=== PATIENT | female | born 1950 | race American Indian/Alaskan Native ===

== ENCOUNTER 2018-01-16 10:33 | Inpatient (IN) | payer MEDICARE ==
--- NOTE | 2018-01-16 10:58 | Cat Scan Report ---
CT head without contrast: Left side tingling and shaking currently asymptomatic. Axial images are performed. There is a rounded area of mild decreased attenuation in the right frontoparietal region on image 36. With this exception the cerebral attenuation is generally unremarkable. Minimal peripheral atrophy present consistent with age. Normal ventricular size. No mass effect, hemorrhage, and no extracerebral collections. Unremarkable bones and paranasal sinuses. Compared to prior exam in March 2010 and considering technical differences the findings appear stable. The right frontoparietal finding is questionably identified on prior exam but due to technical differences may not have been as evident. Impression: Doubt acute finding as discussed above. Discussed with Dr. Currie at 10:50 AM.
[2018-01-16 11:36] LABS: Basophils # (Auto) 0.1 K/mm3 (0.0-0.1); Eosinophils # (Auto) 0.2 K/mm3 (0.0-0.4); Eosinophils % (Auto) 3.5 % (0.0-4.3); Hematocrit 40.9 % (30.3-42.9); Hemoglobin 13.3 gm/dl (10.1-14.3); Lymphocytes # (Auto) 1.6 K/mm3 (1.2-5.4); Lymphocytes % (Auto) 27.3 % (13.4-35.0); Mean Corpuscular HGB Conc 33 % (30-34); Mean Corpuscular Hemoglobin 27 pg (28-32); Mean Corpuscular Volume 83 fl (79-97); Monocytes # (Auto) 0.4 K/mm3 (0.0-0.8); Monocytes % (Auto) 6.5 % (0.0-7.3); Platelet Count 334 K/mm3 (140-440); Red Blood Count 4.95 M/mm3 (3.65-5.03); Red Cell Distribution Width 14.5 % (13.2-15.2)
[2018-01-16 11:46] LABS: INR 0.87 (0.87-1.13)
--- NOTE | 2018-01-16 11:50 | History and Physical Report ---
History of Present Illness Chief complaint: I felt weak on my left side History of present illness: 67 YO Female with Obesity, HTN presents to ED for evaluation. Pt states that she was in her usual state of health at bedtime around 2100 hrs. Pt awoke from sleep around 0900 hrs and experienced Left arm weakness and slurred speech. EMS was notified, and upon arrival the patient was found to have symptoms consistent with stroke. A code stroke was called and the patient was transported to [facility] for further care and evaluation. Pt seen and evaluated in ED and found to have evidence of CVA. Pt admitted to telemetry and initiated on stroke protocol. Pt denies fever,chills, CP, Palpitations, NVD, Syncope, Trauma , recent ill contacts, unilateral leg swelling, calf pain, hemoptysis, individual/family history of DVT/PE. Past History Past Medical History: hypertension, other (obesity) Past Surgical History: No surgical history, Other (reviewed) Social history: single. denies: smoking, alcohol abuse, prescription drug abuse Family history: hypertension Medications and Allergies Allergies Allergy/AdvReac Type Severity Reaction Status Date / Time No Known Allergies Allergy Verified 01/16/18 11:22 Home Medications Medication Instructions Recorded Confirmed Last Taken Type Ibuprofen [Motrin] 800 mg PO Q8HR PRN 01/16/18 01/16/18 Unknown History Losartan [Cozaar] 100 mg PO QDAY 01/16/18 01/16/18 Unknown History NIFEdipine [] 90 mg PO HS 01/16/18 01/16/18 Unknown History Review of Systems Constitutional: no weight loss, no weight gain, no fever, no chills Ears, nose, mouth and throat: no ear pain, no ear discharge, no tinnitis, no decreased hearing, no nose pain, no nasal congestion Breasts: no change in shape, no swelling, no mass Cardiovascular: no chest pain, no orthopnea, no palpitations Respiratory: no cough, no cough with sputum, no excessive sputum, no hemoptysis , no shortness of breath Gastrointestinal: no nausea, no vomiting, no diarrhea, no constipation, no change in bowel habits Genitourinary Female: no dysmenorrhea, no pelvic pain, no flank pain, no menorrhagia, no dysuria Rectal: no pain, no incontinence, no bleeding Musculoskeletal: no neck stiffness, no neck pain, no shooting arm pain, no arm numbness/tingling, no low back pain, no shooting leg pain Integumentary: no rash, no pruritis, no redness, no sores, no wounds Neurological: weakness, numbness, tingling, change in speech, confusion, no head injury, no transient paralysis, no paralysis Psychiatric: no anxiety, no memory loss, no change in sleep habits, no sleep disturbances, no insomnia, no hypersomnia, no change in appetite, no change in libido Endocrine: no cold intolerance, no heat intolerance, no polyphagia, no excessive thirst, no polydipsia, no polyuria, no nocturia Hematologic/Lymphatic: no easy bruising, no easy bleeding, no lymphadenopathy, no lymphedema Allergic/Immunologic: no urticaria, no allergic rhinitis, no wheezing, no persistent infections, no anaphylaxis, no angioedema Exam - Constitutional Vitals: Temp Pulse Resp BP Pulse Ox 98.5 F 77 16 115/68 100 01/16/18 10:39 01/16/18 10:39 01/16/18 11:03 01/16/18 10:39 01/16/18 11:03 General appearance: Present: no acute distress, well-nourished - EENT Eyes: Present: PERRL ENT: hearing intact, clear oral mucosa - Neck Neck: Present: supple, normal ROM - Respiratory Respiratory effort: normal Respiratory: bilateral: CTA - Cardiovascular Heart Sounds: Present: S1 & S2. Absent: rub, click - Extremities Extremities: pulses symmetrical, No edema Peripheral Pulses: within normal limits - Abdominal General gastrointestinal: Present: soft, non-tender, non-distended, normal bowel sounds Female genitourinary: Present: normal - Integumentary Integumentary: Present: clear, warm, dry - Musculoskeletal Musculoskeletal: gait normal, strength equal bilaterally - Psychiatric Psychiatric: appropriate mood/affect, intact judgment & insight - Neurologic Neurologic: CNII-XII intact, moves all extremities Results - Labs CBC & Chem 7: 01/16/18 11:16 01/16/18 11:16 Labs: Abnormal lab results 01/16/18 Range/Units 11:16 MCH 27 L (28-32) pg Assessment and Plan - Patient Problems (1) CVA (cerebral vascular accident) Current Visit: Yes Status: Acute Qualifiers: Precerebral and cerebral artery: middle cerebral artery Laterality of affected vessel: left Plan to address problem: Stroke protocol: CT head, MRI Brain, MRA Brain, Echo, Carotid Doppler, antiplatelet therapy, PT/OT/ Speech, (2) HTN (hypertension) Current Visit: Yes Status: Acute Qualifiers: Hypertension type: essential hypertension Qualified Code(s): I10 - Essential (primary) hypertension Plan to address problem: monitor bp q shift, permissive hypertension overnight. (3) Obesity (BMI 30.0-34.9) Current Visit: Yes Status: Acute Plan to address problem: Balanced diet, increased physical activity at discharge. (4) DVT prophylaxis Current Visit: Yes Status: Acute Plan to address problem: SCD to BLE while in bed
[2018-01-16 11:57] LABS: BUN/Creatinine Ratio 16; Blood Urea Nitrogen 8 mg/dL (7-17); Calcium 9.1 mg/dL (8.4-10.2); Hemolysis Index 14
[2018-01-16 12:00] LABS: Alanine Aminotransferase 8 units/L (7-56); Albumin 4.3 g/dL (3.9-5)
--- NOTE | 2018-01-16 12:03 | XRay Report ---
PORTABLE CHEST: Hypertension. An AP portable view of the chest demonstrates a normal cardiac contour considering the limits of this technique. The lungs are clear with no evidence of infiltrate, fluid or failure. IMPRESSION: Normal portable chest.
[2018-01-16 12:06] LABS: Bilirubin,Direct < 0.2 mg/dL (0-0.2)
[2018-01-16] MEDS ORDERED: MILK OF MAGNESIA PO PRN (13:35)
[2018-01-16] MEDS ORDERED: PHENERGAN PR PRN (13:35)
[2018-01-16] MEDS ORDERED: REGLAN PO PRN (13:35)
[2018-01-16] MEDS ORDERED: SODIUM CHLORIDE FLUSH SYRINGE 10 ML IV PRN (13:35)
[2018-01-16] MEDS ORDERED: ZOFRAN IV PRN (13:35)
[2018-01-16] MEDS ORDERED: DULCOLAX PR PRN (13:35)
[2018-01-16] MEDS ORDERED: TYLENOL PO PRN (13:35)
[2018-01-16] MEDS ORDERED: ATIVAN IV NR (15:00)
--- NOTE | 2018-01-16 18:26 | Emergency Department Report ---
ED Neuro Deficit HPI - General Chief Complaint: Neuro Symptoms/Deficit Stated Complaint: HARD TIME SPEAKING Time Seen by Provider: 01/16/18 10:38 Source: EMS Mode of arrival: Stretcher Limitations: No Limitations - History of Present Illness Initial Comments: 67-year-old female developed some sort of rigidity of her left arm. She did not complain of numbness paresthesias or any sensory symptoms of her face or extremities. She was apparently anxious and had difficulty speaking. Her son called the EMS. She said that she had "shaking" of her left arm. However when the nurse spoke with the son he explained that her left arm was "tense" but there was no sign of seizure activity. At the time presentation to the emergency department the patient had no focal weakness and no difficulty in speaking. She complained of no sensory change either. -: Sudden Location: speech (see above HPI), left arm Presenting Symptoms: Absent: Weak/Paralyzed One Side, Sudden, Severe Headache, Blurred/Loss of Vision, Facial Droop/Numbness, Unable to Speak Clearly, Altered Mental Status History of same: No Place: home Severity: moderate Quality: other (as above indicated) Improves With: none On Anticoagulants: No Context: gradual onset Associated Symptoms: denies other symptoms Treatments Prior to Arrival: none - Related Data Home Medications: Home Medications Medication Instructions Recorded Confirmed Last Taken Ibuprofen [Motrin] 800 mg PO Q8HR PRN 01/16/18 01/16/18 Unknown Losartan [Cozaar] 100 mg PO QDAY 01/16/18 01/16/18 Unknown NIFEdipine [] 90 mg PO HS 01/16/18 01/16/18 Unknown Allergies/Adverse Reactions: Allergies Allergy/AdvReac Type Severity Reaction Status Date / Time No Known Allergies Allergy Verified 01/16/18 11:22 ED Review of Systems ROS: Stated complaint: HARD TIME SPEAKING Other details as noted in HPI Constitutional: denies: chills, fever Eyes: denies: eye pain, eye discharge, vision change ENT: denies: ear pain, throat pain Respiratory: denies: cough, shortness of breath, wheezing Cardiovascular: denies: chest pain, palpitations Endocrine: no symptoms reported Gastrointestinal: denies: abdominal pain, nausea, diarrhea Genitourinary: denies: urgency, dysuria, discharge Musculoskeletal: denies: back pain, joint swelling, arthralgia Skin: denies: rash, lesions Neurological: as per HPI. denies: headache, weakness, paresthesias Psychiatric: denies: anxiety, depression Hematological/Lymphatic: denies: easy bleeding, easy bruising ED Past Medical Hx - Past Medical History Previous Medical History?: Yes Hx Hypertension: Yes - Surgical History Past Surgical History?: No - Social History Smoking Status: Never Smoker Substance Use Type: None - Medications Home Medications: Home Medications Medication Instructions Recorded Confirmed Last Taken Type Ibuprofen [Motrin] 800 mg PO Q8HR PRN 01/16/18 01/16/18 Unknown History Losartan [Cozaar] 100 mg PO QDAY 01/16/18 01/16/18 Unknown History NIFEdipine [] 90 mg PO HS 01/16/18 01/16/18 Unknown History ED Neuro Physical Exam - General Limitations: No Limitations General appearance: alert, in no apparent distress Suspected Stroke: No - Head Head exam: Present: atraumatic, normocephalic - Eye Eye exam: Present: normal appearance, PERRL, EOMI. Absent: scleral icterus - ENT ENT exam: Present: normal exam, mucous membranes moist - Neck Neck exam: Present: normal inspection. Absent: tenderness, meningismus - Respiratory Respiratory exam: Present: normal lung sounds bilaterally. Absent: respiratory distress - Cardiovascular Cardiovascular Exam: Present: regular rate, normal rhythm. Absent: systolic murmur, diastolic murmur, rubs, gallop - GI/Abdominal GI/Abdominal exam: Present: soft, normal bowel sounds. Absent: distended, tenderness, guarding, rebound, rigid - Extremities Exam Extremities exam: Present: normal inspection - Back Exam Back exam: Present: normal inspection - Neurological Exam Neurological exam: Present: alert, oriented X3, CN II-XII intact. Absent: motor sensory deficit - NIHSS Assessment Interval: Baseline 1a. Level of Consciousness: alert 1b. LOC Questions: answers correctly 1c. LOC Commands: performs tasks correctly 2. Best Gaze: normal 3. Visual: no visual loss 4. Facial Palsy: normal symmetrical movement 5b. Motor Arm Right: no drift 5a. Motor Arm Left: no drift 6a. Motor Leg Left: no drift 6b. Motor Leg Right: no drift 7. Limb Ataxia: absent 8. Sensory: normal 9. Best Language: no aphasia 10. Dysarthria: normal 11. Extinction/Inattention: no abnormality Total Score: 0 Stroke Severity: No Stroke Symptoms - Psychiatric Psychiatric exam: Present: normal affect, normal mood - Skin Skin exam: Present: warm, dry, intact, normal color. Absent: rash ED Course Vital Signs 01/16/18 01/16/18 01/16/18 10:39 11:03 14:36 Temperature 98.5 F Pulse Rate 77 91 H Respiratory 16 16 18 Rate Blood Pressure 115/68 Blood Pressure 128/84 [Left] O2 Sat by Pulse 100 100 99 Oximetry - Reevaluation(s) Reevaluation #1: The patient's episode was non-consistent with stroke. Her NIH stroke score was 0. Notwithstanding, she will be admitted as a possible TIA to complete her stroke workup. 01/16/18 18:32 - Lab Data Result diagrams: 01/16/18 11:16 01/16/18 11:16 Lab Results 01/16/18 01/16/18 01/16/18 Range/Units 11:16 11:16 11:16 WBC 5.7 (4.5-11.0) K/mm3 RBC 4.95 (3.65-5.03) M/mm3 Hgb 13.3 (10.1-14.3) gm/dl Hct 40.9 (30.3-42.9) % MCV 83 (79-97) fl MCH 27 L (28-32) pg MCHC 33 (30-34) % RDW 14.5 (13.2-15.2) % Plt Count 334 (140-440) K/mm3 Lymph % (Auto) 27.3 (13.4-35.0) % King % (Auto) 6.5 (0.0-7.3) % Eos % (Auto) 3.5 (0.0-4.3) % Baso % (Auto) 1.0 (0.0-1.8) % Lymph # 1.6 (1.2-5.4) K/mm3 King # 0.4 (0.0-0.8) K/mm3 Eos # 0.2 (0.0-0.4) K/mm3 Baso # 0.1 (0.0-0.1) K/mm3 Seg Neutrophils % 61.7 (40.0-70.0) % Seg Neutrophils # 3.5 (1.8-7.7) K/mm3 PT 12.2 (12.2-14.9) Sec. INR 0.87 (0.87-1.13) APTT 27.0 (24.2-36.6) Sec. Thrombin Time (15.1-19.6) Sec. Sodium 138 (137-145) mmol/L Potassium 4.0 (3.6-5.0) mmol/L Chloride 101.9 (98-107) mmol/L Carbon Dioxide 21 L (22-30) mmol/L Anion Gap 19 mmol/L BUN 8 (7-17) mg/dL Creatinine 0.5 L (0.7-1.2) mg/dL Estimated GFR > 60 ml/min BUN/Creatinine Ratio 16 % Glucose 114 H (65-100) mg/dL Calcium 9.1 (8.4-10.2) mg/dL Total Bilirubin (0.1-1.2) mg/dL Direct Bilirubin (0-0.2) mg/dL Indirect Bilirubin mg/dL AST (5-40) units/L ALT (7-56) units/L Alkaline Phosphatase (35-129) units/L Troponin T < 0.010 (0.00-0.029) ng/mL Total Protein (6.3-8.2) g/dL Albumin (3.9-5) g/dL Albumin/Globulin Ratio % 01/16/18 01/16/18 Range/Units 11:16 11:16 WBC (4.5-11.0) K/mm3 RBC (3.65-5.03) M/mm3 Hgb (10.1-14.3) gm/dl Hct (30.3-42.9) % MCV (79-97) fl MCH (28-32) pg MCHC (30-34) % RDW (13.2-15.2) % Plt Count (140-440) K/mm3 Lymph % (Auto) (13.4-35.0) % King % (Auto) (0.0-7.3) % Eos % (Auto) (0.0-4.3) % Baso % (Auto) (0.0-1.8) % Lymph # (1.2-5.4) K/mm3 King # (0.0-0.8) K/mm3 Eos # (0.0-0.4) K/mm3 Baso # (0.0-0.1) K/mm3 Seg Neutrophils % (40.0-70.0) % Seg Neutrophils # (1.8-7.7) K/mm3 PT (12.2-14.9) Sec. INR (0.87-1.13) APTT (24.2-36.6) Sec. Thrombin Time 15.7 (15.1-19.6) Sec. Sodium (137-145) mmol/L Potassium (3.6-5.0) mmol/L Chloride (98-107) mmol/L Carbon Dioxide (22-30) mmol/L Anion Gap mmol/L BUN (7-17) mg/dL Creatinine (0.7-1.2) mg/dL Estimated GFR ml/min BUN/Creatinine Ratio % Glucose (65-100) mg/dL Calcium (8.4-10.2) mg/dL Total Bilirubin 0.50 (0.1-1.2) mg/dL Direct Bilirubin < 0.2 (0-0.2) mg/dL Indirect Bilirubin 0.3 mg/dL AST 18 (5-40) units/L ALT 8 (7-56) units/L Alkaline Phosphatase 67 (35-129) units/L Troponin T (0.00-0.029) ng/mL Total Protein 7.2 (6.3-8.2) g/dL Albumin 4.3 (3.9-5) g/dL Albumin/Globulin Ratio 1.5 % - EKG Data -: EKG Interpreted by Me EKG shows normal: sinus rhythm, axis, intervals, QRS complexes Interpretation: nonspecific ST-T wave yg (inferior leads) - Radiology Data Radiology results: report reviewed interpreted by me: No acute findings - Thrombolytic Inclusion/Exclusion Thrombolytic Contraindications: Rapidily Improving s/s (symptoms not conforming with stroke) Critical care attestation.: If time is entered above; I have spent that time in minutes in the direct care of this critically ill patient, excluding procedure time. ED Disposition Clinical Impression: TIA (transient ischemic attack) Qualifiers: Transient cerebral ischemia type: unspecified Qualified Code(s): G45.9 - Transient cerebral ischemic attack, unspecified Disposition: 09 OP ADMIT IP TO THIS HOSP Is pt being admited?: Yes Does the pt Need Aspirin: Yes Condition: Stable Time of Disposition: 18:35
[2018-01-16] MEDS ORDERED: PRAVACHOL PO SCH (22:00)
[2018-01-17 06:54] LABS: Chol/HDL Ratio 3.32 %
--- NOTE | 2018-01-17 12:11 | Progress Note ---
Assessment and Plan Assessment and plan: (1) CVA (cerebral vascular accident) Current Visit: Yes Status: Acute Qualifiers: Precerebral and cerebral artery: middle cerebral artery Laterality of affected vessel: left Plan to address problem: Stroke protocol: CT head, MRI Brain, MRA Brain, Echo, Carotid Doppler, antiplatelet therapy, PT/OT/ Speech, (2) HTN (hypertension) Current Visit: Yes Status: Acute Qualifiers: Hypertension type: essential hypertension Qualified Code(s): I10 - Essential (primary) hypertension Plan to address problem: monitor bp q shift, permissive hypertension overnight. (3) Obesity (BMI 30.0-34.9) Current Visit: Yes Status: Acute Plan to address problem: Balanced diet, increased physical activity at discharge. (4) DVT prophylaxis Current Visit: Yes Status: Acute Plan to address problem: SCD to BLE while in bed History Interval history: Patient seen and examined medical records reviewed Physical slightly better no new complaints Speech clear No weakness in the body Alert awake oriented 3 Vital signs reviewed Hospitalist Physical - Constitutional Vitals: Temp Pulse Resp BP Pulse Ox 98.4 F 94 H 20 111/72 96 01/17/18 08:13 01/17/18 11:47 01/17/18 11:47 01/17/18 08:13 01/17/18 08:13 General appearance: Present: no acute distress, well-nourished - EENT Eyes: Present: PERRL - Neck Neck: Present: supple, normal ROM - Respiratory Respiratory effort: normal Respiratory: negative: rales, rhonchi, wheezing - Cardiovascular Rhythm: regular Heart Sounds: Present: S1 & S2 - Extremities Extremities: no ischemia, No edema Peripheral Pulses: within normal limits - Abdominal General gastrointestinal: soft, non-tender, non-distended, normal bowel sounds - Integumentary Integumentary: Present: clear, warm - Psychiatric Psychiatric: appropriate mood/affect, cooperative - Neurologic Neurologic: CNII-XII intact, moves all extremities Results - Labs CBC & Chem 7: 01/16/18 11:16 01/16/18 11:16 Labs: Laboratory Last Values WBC 5.7 K/mm3 (4.5-11.0) 01/16/18 11:16 RBC 4.95 M/mm3 (3.65-5.03) 01/16/18 11:16 Hgb 13.3 gm/dl (10.1-14.3) 01/16/18 11:16 Hct 40.9 % (30.3-42.9) 01/16/18 11:16 MCV 83 fl (79-97) 01/16/18 11:16 MCH 27 pg (28-32) L 01/16/18 11:16 MCHC 33 % (30-34) 01/16/18 11:16 RDW 14.5 % (13.2-15.2) 01/16/18 11:16 Plt Count 334 K/mm3 (140-440) 01/16/18 11:16 Lymph % (Auto) 27.3 % (13.4-35.0) 01/16/18 11:16 [place] % (Auto) 6.5 % (0.0-7.3) 01/16/18 11:16 Eos % (Auto) 3.5 % (0.0-4.3) 01/16/18 11:16 Baso % (Auto) 1.0 % (0.0-1.8) 01/16/18 11:16 Lymph # 1.6 K/mm3 (1.2-5.4) 01/16/18 11:16 [place]cock # 0.4 K/mm3 (0.0-0.8) 01/16/18 11:16 Eos # 0.2 K/mm3 (0.0-0.4) 01/16/18 11:16 Baso # 0.1 K/mm3 (0.0-0.1) 01/16/18 11:16 Seg Neutrophils % 61.7 % (40.0-70.0) 01/16/18 11:16 Seg Neutrophils # 3.5 K/mm3 (1.8-7.7) 01/16/18 11:16 PT 12.2 Sec. (12.2-14.9) 01/16/18 11:16 INR 0.87 (0.87-1.13) 01/16/18 11:16 APTT 27.0 Sec. (24.2-36.6) 01/16/18 11:16 Thrombin Time 15.7 Sec. (15.1-19.6) 01/16/18 11:16 Sodium 138 mmol/L (137-145) 01/16/18 11:16 Potassium 4.0 mmol/L (3.6-5.0) 01/16/18 11:16 Chloride 101.9 mmol/L (98-107) 01/16/18 11:16 Carbon Dioxide 21 mmol/L (22-30) L 01/16/18 11:16 Anion Gap 19 mmol/L 01/16/18 11:16 BUN 8 mg/dL (7-17) 01/16/18 11:16 Creatinine 0.5 mg/dL (0.7-1.2) L 01/16/18 11:16 Estimated GFR > 60 ml/min 01/16/18 11:16 BUN/Creatinine Ratio 16 % 01/16/18 11:16 Glucose 114 mg/dL (65-100) H 01/16/18 11:16 Calcium 9.1 mg/dL (8.4-10.2) 01/16/18 11:16 Total Bilirubin 0.50 mg/dL (0.1-1.2) 01/16/18 11:16 Direct Bilirubin < 0.2 mg/dL (0-0.2) 01/16/18 11:16 Indirect Bilirubin 0.3 mg/dL 01/16/18 11:16 AST 18 units/L (5-40) 01/16/18 11:16 ALT 8 units/L (7-56) 01/16/18 11:16 Alkaline Phosphatase 67 units/L (35-129) 01/16/18 11:16 Troponin T < 0.010 ng/mL (0.00-0.029) 01/16/18 11:16 Total Protein 7.2 g/dL (6.3-8.2) 01/16/18 11:16 Albumin 4.3 g/dL (3.9-5) 01/16/18 11:16 Albumin/Globulin Ratio 1.5 % 01/16/18 11:16 Triglycerides 81 mg/dL (2-149) 01/17/18 05:12 Cholesterol 206 mg/dL (50-199) H 01/17/18 05:12 LDL Cholesterol Direct 132 mg/dL (50-130) H 01/17/18 05:12 HDL Cholesterol 62 mg/dL (40-59) H 01/17/18 05:12 Cholesterol/HDL Ratio 3.32 % 01/17/18 05:12
--- NOTE | 2018-01-17 12:32 | Magnetic Resonance Report ---
MRA HEAD WITHOUT CONTRAST HISTORY: Show. [id number] imaging with MIP reformations of the pilot point of Russ is submitted. The arteries appear widely patent and free of hemodynamically significant stenosis, aneurysm or dissection. IMPRESSION: Unremarkable MRA head.
--- NOTE | 2018-01-17 12:32 | Magnetic Resonance Report ---
MRI OF THE BRAIN WITHOUT CONTRAST: HISTORY: CVA PROCEDURE: Multiplanar, multisequence MR imaging of the brain without IV contrast was performed. FINDINGS: There are large areas of susceptibility artifact throughout the bilateral frontal lobes and left parietal lobe. This is most pronounced on the diffusion sequence. A solitary 4 mm focus of diffusion restriction is identified in the right parietal lobe on diffusion image 20. This appears to involve the postcentral gyrus. No additional areas of diffusion restriction are identified although the diffusion sequence is severely limited. Mild diffuse volume loss and mild nonspecific chronic white matter changes are identified. No chronic infarct is detected. The midline structures are central. The basal cisterns are patent. Normal ventricular size. The orbital cavities and sella turcica demonstrate no abnormality. The visualized paranasal sinuses and mastoid air cells are well aerated. IMPRESSION: Limited exam. A 4 mm focus of subacute ischemia is suspected in the anterior right parietal lobe as described above. Volume loss. Chronic white matter changes.
[2018-01-17] MEDS: ASPIRIN PO SCH (15:42)
[2018-01-18] MEDS: ASPIRIN PO SCH (11:16)
--- NOTE | 2018-01-18 13:35 | Discharge Summary ---
Providers - Providers Date of Admission: 01/16/18 13:36 Date of discharge: 01/18/18 Attending physician: BOY ZULUAGA 01/16/18 13:36 Occupational Therapy Evaluate and Treat [CONS] Routine Comment: Reason For Exam: Neuro deficits Physical Therapy Evaluation and Treat [CONS] Routine Comment: Reason For Exam: Neuro deficits 01/16/18 13:37 Speech Therapy Evaluation and Treat [CONS] Routine Reason For Exam: swallow eval Primary care physician: SUPERINTENDENT [employer]OWER Hospitalization Condition: Stable Disposition: DC-01 TO HOME OR SELFCARE Time spent for discharge: 33 min Core Measure Documentation - Palliative Care Palliative Care/ Comfort Measures: Not Applicable - Core Measures Any of the following diagnoses?: stroke - Stroke Discharge Requirements Statin for LDL = or >70 mg/dl on DC: Yes Anticoag for atrial fib/atrial flutter: Not Applicable (no h/o afib/aflutter) Antithrombotic for ischemic stroke: Yes Exam - Constitutional Vitals: Temp Pulse Resp BP Pulse Ox 98.5 F 74 19 127/83 96 01/18/18 07:30 01/18/18 07:30 01/18/18 07:30 01/18/18 07:30 01/18/18 10:00 General appearance: Present: no acute distress, well-nourished - EENT Eyes: Present: PERRL, EOM intact - Neck Neck: Present: supple, normal ROM - Respiratory Respiratory effort: normal Respiratory: negative: rales, rhonchi, wheezing - Cardiovascular Rhythm: regular Heart Sounds: Present: S1 & S2 - Extremities Extremities: no ischemia, No edema - Abdominal General gastrointestinal: Present: soft, non-tender, non-distended, normal bowel sounds - Integumentary Integumentary: Present: clear, warm - Musculoskeletal Musculoskeletal: strength equal bilaterally - Psychiatric Psychiatric: appropriate mood/affect, cooperative - Neurologic Neurologic: CNII-XII intact, moves all extremities Plan Activity: advance as tolerated Diet: low cholesterol, low salt Follow up with: ALMA CRAVEN MD [Primary Care Provider] - 7 Days BRIAN DIALLO MD [Staff Physician] - 7 Days Prescriptions: Aspirin [Aspirin TAB] 325 mg PO QDAY #30 tablet AtorvaSTATin [Lipitor] 40 mg PO QHS #30 tab
[2018-01-18 16:47] VITALS: BP 126/70
--- NOTE | 2018-01-20 15:18 | Query- General ---
Dear ____Kimo Date:__01/20/2018 Livestock Sales Representative/CDS:___Mima Phone#:__[phone] Exercise your independent professional judgment when responding to this query. Questions asked do not imply a particular answer is desired or expected. We greatly appreciate your clarification on this issue. Clinical Documentation States: 67 Year old female was admitted on 01/16/2018 for Left arm weakness and slurred speech. EMS was notified, and upon arrival the patient was found to have symptoms consistent with stroke. A code stroke was called and the patient was transported to [facility] for further care and evaluation. Pt seen and evaluated in ED and found to have evidence of CVA. Pt admitted to telemetry and initiated on stroke protocol. The Hospitalist (Dr. Malin) progress note stated "Assessment and plan: (1) CVA (cerebral vascular accident) Current Visit: Yes Status: Acute Qualifiers: Precerebral and cerebral artery: middle cerebral artery Laterality of affected vessel: left Plan to address problem: Stroke protocol: CT head, MRI Brain, MRA Brain, Echo, Carotid Doppler, antiplatelet therapy, PT/OT/ Speech." Given the above clinical scenario can you please provide an appropriate diagnosis based on your knowledge of the patient: PHYSICIAN RESPONSE: [ ] CVA Ruled In [ ] CVA Ruled Out [ ] Other (Please specify): Present on Admission: [ ] Yes (Y) [ ] Clinically undeterminable (W) [ ]No(N) Please also document response in your Progress Notes and/or Discharge Summary and indicate if the condition was present on admission. JAVY
== END 2018-01-18 16:00 | disposition home or self-care (01) | DRG 66 ==
LOC: ED 10:33 → 4A 13:36
PROVIDERS: ADMIT Internal Medicine; ATTEND Internal Medicine
DX: I63.9 Cerebral infarction, unspecified (principal); I10 Essential (primary) hypertension; E66.9 Obesity, unspecified; Z68.29 Body mass index [BMI] 29.0-29.9, adult; Z79.899 Other long term (current) drug therapy; Z82.49 Family history of ischemic heart disease and other diseases of the circulatory system
CPT/HCPCS: 36415; 70450; 70544; 70551; 71045; 80048; 80061; 80074; 84484; 85025; 85610; 85670; 85730; 93005; 93010; 93880; A9270-GY; G8978-GP; G8979-GP; G8980-GP; G8987-GO; G8988-GO; G8989-GO; G8996-GN; G8997-GN; G8998-GN; J2060

== ENCOUNTER 2019-01-01 00:32 | Emergency (ER) | payer MEDICARE ==
[2019-01-01 00:51] VITALS: BP 116/77
[2019-01-01] MEDS ORDERED: NORCO 5/325 PO STA (03:32)
--- NOTE | 2019-01-01 03:39 | Emergency Department Report ---
ED ENT HPI - General Chief complaint: Dental/Oral Stated complaint: TOOTHACHE Time Seen by Provider: 01/01/19 03:01 Source: patient Mode of arrival: Ambulatory Limitations: No Limitations - History of Present Illness MD complaint: tooth pain -: Gradual Location: tooth # Severity: mild Quality: aching, dull Consistency: constant Improves with: none Worsens with: eating (sitting on Day when she bit into something and cracked her tooth, which was already fractured and eroded. Since that time 7 dull throbbing pain to the dentition, with some mild adjacent swelling) - Related Data Home Medications Medication Instructions Recorded Confirmed Last Taken Ibuprofen [Motrin 800 MG tab] 800 mg PO Q8HR PRN 01/16/18 01/16/18 Unknown Losartan [Cozaar] 100 mg PO QDAY 01/16/18 01/16/18 Unknown NIFEdipine [Nifedipine ER] 90 mg PO HS 01/16/18 01/16/18 Unknown Previous Rx's Medication Instructions Recorded Last Taken Type Aspirin 325 mg PO QDAY #30 tablet 01/18/18 Unknown Rx AtorvaSTATin [Lipitor] 40 mg PO QHS #30 tab 01/18/18 Unknown Rx Amoxicillin [Amoxicillin TAB] 875 mg PO BID #20 tablet 01/01/19 Unknown Rx Chlorhexidine Mouthwash [Peridex] 15 ml MM BID #1 bottle 01/01/19 Unknown Rx Lidocaine Viscous 2% 5 ml MM Q3H PRN #120 udc 01/01/19 Unknown Rx Allergies Allergy/AdvReac Type Severity Reaction Status Date / Time No Known Allergies Allergy Verified 01/16/18 11:22 ED Dental HPI - General Chief complaint: Dental/Oral Stated complaint: TOOTHACHE Time Seen by Provider: 01/01/19 03:01 Source: patient Mode of arrival: Ambulatory Limitations: No Limitations - Related Data Home Medications Medication Instructions Recorded Confirmed Last Taken Ibuprofen [Motrin 800 MG tab] 800 mg PO Q8HR PRN 01/16/18 01/16/18 Unknown Losartan [Cozaar] 100 mg PO QDAY 01/16/18 01/16/18 Unknown NIFEdipine [Nifedipine ER] 90 mg PO HS 01/16/18 01/16/18 Unknown Previous Rx's Medication Instructions Recorded Last Taken Type Aspirin 325 mg PO QDAY #30 tablet 01/18/18 Unknown Rx AtorvaSTATin [Lipitor] 40 mg PO QHS #30 tab 01/18/18 Unknown Rx Amoxicillin [Amoxicillin TAB] 875 mg PO BID #20 tablet 01/01/19 Unknown Rx Chlorhexidine Mouthwash [Peridex] 15 ml MM BID #1 bottle 01/01/19 Unknown Rx Lidocaine Viscous 2% 5 ml MM Q3H PRN #120 udc 01/01/19 Unknown Rx Allergies Allergy/AdvReac Type Severity Reaction Status Date / Time No Known Allergies Allergy Verified 01/16/18 11:22 ED Review of Systems ROS: Stated complaint: TOOTHACHE Other details as noted in HPI Constitutional: denies: chills, fever Eyes: denies: eye pain, eye discharge, vision change ENT: denies: ear pain, throat pain Respiratory: denies: cough, shortness of breath, wheezing Cardiovascular: denies: chest pain, palpitations Endocrine: no symptoms reported Gastrointestinal: denies: abdominal pain, nausea, diarrhea Genitourinary: denies: urgency, dysuria, discharge Musculoskeletal: denies: back pain, joint swelling, arthralgia Skin: denies: rash, lesions Neurological: denies: headache, weakness, paresthesias Psychiatric: denies: anxiety, depression Hematological/Lymphatic: denies: easy bleeding, easy bruising ED Past Medical Hx - Past Medical History Hx Hypertension: Yes Hx HIV: No - Social History Smoking Status: Never Smoker Substance Use Type: None - Medications Home Medications: Home Medications Medication Instructions Recorded Confirmed Last Taken Type Ibuprofen [Motrin 800 MG tab] 800 mg PO Q8HR PRN 01/16/18 01/16/18 Unknown History Losartan [Cozaar] 100 mg PO QDAY 01/16/18 01/16/18 Unknown History NIFEdipine [Nifedipine ER] 90 mg PO HS 01/16/18 01/16/18 Unknown History Aspirin 325 mg PO QDAY #30 tablet 01/18/18 Unknown Rx AtorvaSTATin [Lipitor] 40 mg PO QHS #30 tab 01/18/18 Unknown Rx Amoxicillin [Amoxicillin TAB] 875 mg PO BID #20 tablet 01/01/19 Unknown Rx Chlorhexidine Mouthwash [Peridex] 15 ml MM BID #1 bottle 01/01/19 Unknown Rx Lidocaine Viscous 2% 5 ml MM Q3H PRN #120 udc 01/01/19 Unknown Rx ED Physical Exam - General Limitations: No Limitations General appearance: alert, in no apparent distress - Head Head exam: Present: atraumatic, normocephalic - Eye Eye exam: Present: normal appearance, PERRL, EOMI. Absent: scleral icterus, conjunctival injection Pupils: Present: normal accommodation - ENT ENT exam: Present: normal exam, mucous membranes dry, mucous membranes moist, TM's normal bilaterally - Neck Neck exam: Present: normal inspection, tenderness, full ROM - Respiratory Respiratory exam: Present: normal lung sounds bilaterally. Absent: respiratory distress - Cardiovascular Cardiovascular Exam: Present: regular rate, normal rhythm. Absent: systolic murmur, diastolic murmur, rubs, gallop - GI/Abdominal GI/Abdominal exam: Present: soft, normal bowel sounds. Absent: distended, hypoactive bowel sounds, organomegaly, mass, bruit - Extremities Exam Extremities exam: Present: normal inspection - Back Exam Back exam: Present: normal inspection - Neurological Exam Neurological exam: Present: alert, oriented X3 - Psychiatric Psychiatric exam: Present: normal affect, normal mood - Skin Skin exam: Present: warm, dry, intact, normal color. Absent: rash ED Course Vital Signs 01/01/19 01/01/19 00:44 00:45 Temperature 98.2 F Pulse Rate 102 H 95 H Respiratory 18 Rate Blood Pressure 116/77 O2 Sat by Pulse 96 97 Oximetry Critical care attestation.: If time is entered above; I have spent that time in minutes in the direct care of this critically ill patient, excluding procedure time. ED Disposition Clinical Impression: Dentalgia Disposition: DC-01 TO HOME OR SELFCARE Is pt being admited?: No Does the pt Need Aspirin: No Condition: Stable Instructions: Dental Abscess (ED), Dental Caries (ED), Acute dental trauma (ED), Toothache (ED) Prescriptions: Amoxicillin [Amoxicillin TAB] 875 mg PO BID #20 tablet Lidocaine Viscous 2% 5 ml MM Q3H PRN #120 udc PRN Reason: Pain, Moderate (4-6) Chlorhexidine Mouthwash [Peridex] 15 ml MM BID #1 bottle Referrals: VIOLETTA MONCADA JR, MD [Primary Care Provider] - 3-5 Days [facility] [Outside] - 3-5 Days
== END 2019-01-01 04:32 | disposition home or self-care (01) ==
LOC: ED 00:32
DX: K08.89 Other specified disorders of teeth and supporting structures (principal); I10 Essential (primary) hypertension; Z79.82 Long term (current) use of aspirin
CPT/HCPCS: 99282

== ENCOUNTER 2019-11-12 19:59 | Emergency (ER) | payer MEDICARE | END 2019-11-12 20:00 | disposition left against medical advice (07) | LOC: ED 19:59 | DX: R33.9 Retention of urine, unspecified (principal); Z53.21 Procedure and treatment not carried out due to patient leaving prior to being seen by health care provider ==

== ENCOUNTER 2020-09-17 16:22 | Emergency (ER) | payer MEDICARE ==
[2020-09-17 16:54] VITALS: BP 151/93
--- NOTE | 2020-09-17 21:11 | Emergency Department Report ---
ED General Adult HPI - General Chief complaint: Pain General Stated complaint: DOC SENT DUE TO EKG Time Seen by Provider: 09/17/20 20:50 Source: patient Mode of arrival: Ambulatory Limitations: No Limitations - History of Present Illness Initial comments: 69-year-old female, history of hypertension, referred to ED for abnormal EKG. Patient states she is experiencing some numbness and tingling in her left index finger, so she decided to go to an urgent care to find out what was going on. Patient states she has not had any paresthesias to the rest of her hand or arm. Patient states she experienced a sharp pain in her left upper arm that lasted fo r only a couple of seconds and then resolved. Patient has not had this pain again. She denies any chest pain. She denies any nausea or vomiting, diaphoresis, leg pain or swelling. Patient states the urgent care physician did an EKG and told her that it was abnormal, recommending that she come to the ER. EKG from urgent care shows T wave inversions and leads III and aVF. Patient denies tobacco use. -: This morning Location: left, upper extremity Radiation: non-radiation Quality: other (Tingling) Consistency: intermittent Improves with: none Worsens with: none Associated Symptoms: denies: chest pain, nausea/vomiting, shortness of breath - Related Data Home Medications Medication Instructions Recorded Confirmed Last Taken Ibuprofen [Motrin 800 MG tab] 800 mg PO Q8HR PRN 01/16/18 01/16/18 Unknown Losartan [Cozaar] 100 mg PO QDAY 01/16/18 01/16/18 Unknown NIFEdipine [Nifedipine ER] 90 mg PO HS 01/16/18 01/16/18 Unknown Previous Rx's Medication Instructions Recorded Last Taken Type Aspirin 325 mg PO QDAY #30 tablet 01/18/18 Unknown Rx AtorvaSTATin [Lipitor] 40 mg PO QHS #30 tab 01/18/18 Unknown Rx Amoxicillin [Amoxicillin TAB] 875 mg PO BID #20 tablet 01/01/19 Unknown Rx Chlorhexidine Mouthwash [Peridex] 15 ml MM BID #1 bottle 01/01/19 Unknown Rx Lidocaine Viscous 2% 5 ml MM Q3H PRN #120 udc 01/01/19 Unknown Rx Allergies Allergy/AdvReac Type Severity Reaction Status Date / Time No Known Allergies Allergy Verified 01/16/18 11:22 ED Review of Systems ROS: Stated complaint: DOC SENT DUE TO EKG Other details as noted in HPI Comment: All other systems reviewed and negative Constitutional: denies: fever Respiratory: denies: shortness of breath Cardiovascular: denies: chest pain Gastrointestinal: denies: nausea, vomiting Musculoskeletal: other (Denies leg pain or swelling) Neurological: paresthesias ED Past Medical Hx - Past Medical History Previous Medical History?: Yes Hx Hypertension: Yes Hx HIV: No - Surgical History Past Surgical History?: Yes Additional Surgical History: G[place] knee replacement, Bladder tuck, left hip replacement - Social History Smoking Status: Never Smoker Substance Use Type: None - Medications Home Medications: Home Medications Medication Instructions Recorded Confirmed Last Taken Type Ibuprofen [Motrin 800 MG tab] 800 mg PO Q8HR PRN 01/16/18 01/16/18 Unknown History Losartan [Cozaar] 100 mg PO QDAY 01/16/18 01/16/18 Unknown History NIFEdipine [Nifedipine ER] 90 mg PO HS 01/16/18 01/16/18 Unknown History Aspirin 325 mg PO QDAY #30 tablet 01/18/18 Unknown Rx AtorvaSTATin [Lipitor] 40 mg PO QHS #30 tab 01/18/18 Unknown Rx Amoxicillin [Amoxicillin TAB] 875 mg PO BID #20 tablet 01/01/19 Unknown Rx Chlorhexidine Mouthwash [Peridex] 15 ml MM BID #1 bottle 01/01/19 Unknown Rx Lidocaine Viscous 2% 5 ml MM Q3H PRN #120 udc 01/01/19 Unknown Rx ED Physical Exam - General Limitations: No Limitations General appearance: alert, in no apparent distress - Head Head exam: Present: atraumatic, normocephalic - Eye Eye exam: Present: normal appearance, EOMI - ENT ENT exam: Present: mucous membranes moist - Neck Neck exam: Present: normal inspection - Respiratory Respiratory exam: Present: normal lung sounds bilaterally. Absent: respiratory distress - Cardiovascular Cardiovascular Exam: Present: regular rate, normal rhythm - GI/Abdominal GI/Abdominal exam: Present: soft. Absent: distended, tenderness - Extremities Exam Extremities exam: Present: normal inspection - Neurological Exam Neurological exam: Present: alert, oriented X3, CN II-XII intact. Absent: motor sensory deficit - Psychiatric Psychiatric exam: Present: normal affect, normal mood - Skin Skin exam: Present: warm, dry, intact, normal color ED Course Vital Signs 09/17/20 16:52 Temperature 98.4 F Pulse Rate 80 Respiratory 18 Rate Blood Pressure 151/93 O2 Sat by Pulse 100 Oximetry ED Medical Decision Making - Lab Data Result diagrams: 09/17/20 21:11 09/17/20 21:11 - EKG Data -: EKG Interpreted by Me EKG shows normal: sinus rhythm, axis, intervals, QRS complexes, ST-T waves Rate: normal - EKG Data When compared to previous EKG there are: no significant change (compared to 01/2018) Interpretation: other (T wave inversion in lead III) - Radiology Data Radiology results: report reviewed, image reviewed - Medical Decision Making Inferior T wave inversions present on EKG. Also present on EKG from 2018. There are no other changes on her EKG. Patient does not have any chest pain or arm pain. From what patient describes, she had a sharp pain left upper arm that lasted for only a couple of seconds and resolved. Pain has not returned. Patient's numbness and tingling is only located in her left index finger, not her entire hand or arm. Troponin is normal. Low suspicion for ACS. Will discharge at this time. Patient follow-up advised, return precautions given. Critical care attestation.: If time is entered above; I have spent that time in minutes in the direct care of this critically ill patient, excluding procedure time. ED Disposition Clinical Impression: Abnormal EKG Disposition: DC-01 TO HOME OR SELFCARE Is pt being admited?: No Condition: Stable Additional Instructions: This same EKG abnormality was present on an EKG from 2018. Please follow up with your primary care physician. Return to the ER if your symptoms worsen. Referrals: VIOLETTA MONCADA JR, MD [Primary Care Provider] - 3-5 Days JANY AL MD [Staff Physician] - 3-5 Days Time of Disposition: 22:18 HEART Score - HEART Score History: Slightly suspicious EKG: Normal Age: > 65 Risk factors: 1-2 risk factors Troponin: Troponin T < 0.010 ng/mL (0.00-0.029) 09/17/20 21:11 Troponin: < normal limit HEART Score: 3
[2020-09-17 21:21] LABS: Basophils # (Auto) 0.1 K/mm3 (0.0-0.1); Basophils % (Auto) 0.9 % (0.0-1.8); Eosinophils # (Auto) 0.3 K/mm3 (0.0-0.4); Eosinophils % (Auto) 4.7 % (0.0-4.3); Hematocrit 41.4 % (30.3-42.9); Hemoglobin 13.9 gm/dl (10.1-14.3); Lymphocytes # (Auto) 1.9 K/mm3 (1.2-5.4); Lymphocytes % (Auto) 31.3 % (13.4-35.0); Mean Corpuscular HGB Conc 34 % (30-34); Mean Corpuscular Volume 85 fl (79-97); Monocytes # (Auto) 0.4 K/mm3 (0.0-0.8); Monocytes % (Auto) 6.5 % (0.0-7.3); Platelet Count 340 K/mm3 (140-440); Red Blood Count 4.88 M/mm3 (3.65-5.03); Red Cell Distribution Width 15.3 % (13.2-15.2)
[2020-09-17 21:37] LABS: Blood Urea Nitrogen 9 mg/dL (7-17); Calcium 9.3 mg/dL (8.4-10.2); Hemolysis Index 9
[2020-09-17 21:39] LABS: BUN/Creatinine Ratio 15
--- NOTE | 2020-09-17 21:58 | XRay Report ---
CHEST 1 VIEW 09/17/2020 8:32 PM INDICATION / CLINICAL INFORMATION: chest pain. COMPARISON: Chest one view from 01/16/2018. FINDINGS: SUPPORT DEVICES: None. HEART / MEDIASTINUM: No significant abnormality. LUNGS / PLEURA: Clear lungs. No significant pleural effusion. No pneumothorax. ADDITIONAL FINDINGS: No significant additional findings. IMPRESSION: 1. No significant abnormality of the chest. Signer Name: Jacob Ruiz MD Signed: 09/17/2020 9:53 PM Workstation Name: [id number]
== END 2020-09-17 22:45 | disposition home or self-care (01) ==
LOC: ED 16:22
DX: R94.31 Abnormal electrocardiogram [ECG] [EKG] (principal); I10 Essential (primary) hypertension; Z79.899 Other long term (current) drug therapy; Z98.890 Other specified postprocedural states
CPT/HCPCS: 36415; 71045; 80048; 84484; 85025; 93005

== ENCOUNTER 2020-10-18 15:48 | Emergency (ER) | payer MEDICARE ==
[2020-10-18] MEDS ORDERED: ONDANSETRON 4 MG/2 ML INJ IV ONE (17:54)
[2020-10-18] MEDS ORDERED: KETOROLAC 30 MG/1 ML INJ IV ONE (17:54)
[2020-10-18] MEDS ORDERED: FAMOTIDINE 20 MG/2 ML INJ IV ONE (18:23)
--- NOTE | 2020-10-18 18:26 | Emergency Department Report ---
ED Abdominal Pain HPI - General Chief Complaint: Abdominal Pain Stated Complaint: ABD PAIN Time Seen by Provider: 10/18/20 17:32 Source: patient Mode of arrival: Ambulatory Limitations: No Limitations - History of Present Illness Initial Comments: 70-year-old female with a past medical history of abdominal pain x1 day. Patient apparently suffers with intermittent constipation and was started on probiotics 3 weeks ago. 3 to 4 days ago patient also drink prune juice to help with constipation. Today she developed aching lower abdominal pain followed by bowel movement. Patient states she has had 3 bowel movements total and denies excessive straining, diarrhea, melena, or hematochezia. She did have some mild relief in pain after bowel movements. She also has had 3 episodes of nonbilious nonbloody vomitus with last episode in the waiting room. Patient states she has had previous hysterectomy and bladder tuck surgery. She denies fever, dysuria, hematuria, or urinary frequency. Abdominal pain is currently mild to moderate. Severity scale (0 -10): 7 - Related Data Home Medications Medication Instructions Recorded Confirmed Last Taken Ibuprofen [Motrin 800 MG tab] 800 mg PO Q8HR PRN 01/16/18 01/16/18 Unknown Losartan [Cozaar] 100 mg PO QDAY 01/16/18 01/16/18 Unknown NIFEdipine [Nifedipine ER] 90 mg PO HS 01/16/18 01/16/18 Unknown Previous Rx's Medication Instructions Recorded Last Taken Type Aspirin 325 mg PO QDAY #30 tablet 01/18/18 Unknown Rx AtorvaSTATin [Lipitor] 40 mg PO QHS #30 tab 01/18/18 Unknown Rx Amoxicillin [Amoxicillin TAB] 875 mg PO BID #20 tablet 01/01/19 Unknown Rx Chlorhexidine Mouthwash [Peridex] 15 ml MM BID #1 bottle 01/01/19 Unknown Rx Lidocaine Viscous 2% 5 ml MM Q3H PRN #120 udc 01/01/19 Unknown Rx Docusate Sodium [Colace] 100 mg PO BID PRN #14 capsule 10/18/20 Unknown Rx Promethazine [Phenergan] 25 mg PO Q6HR PRN #20 tab 10/18/20 Unknown Rx levoFLOXacin [Levaquin] 750 mg PO QDAY #7 tablet 10/18/20 Unknown Rx metroNIDAZOLE [Flagyl] 500 mg PO Q8HR #21 tablet 10/18/20 Unknown Rx traMADoL [Ultram 50 MG tab] 50 mg PO Q6HR PRN #20 tablet 10/18/20 Unknown Rx Allergies Allergy/AdvReac Type Severity Reaction Status Date / Time No Known Allergies Allergy Verified 01/16/18 11:22 ED Review of Systems ROS: Stated complaint: ABD PAIN Other details as noted in HPI Comment: All other systems reviewed and negative ED Past Medical Hx - Past Medical History Previous Medical History?: Yes Hx Hypertension: Yes Hx HIV: No - Surgical History Additional Surgical History: [place] knee replacement, Bladder tuck, left hip replacement, hysterectomy - Social History Smoking Status: Unknown if ever smoked - Medications Home Medications: Home Medications Medication Instructions Recorded Confirmed Last Taken Type Ibuprofen [Motrin 800 MG tab] 800 mg PO Q8HR PRN 01/16/18 01/16/18 Unknown History Losartan [Cozaar] 100 mg PO QDAY 01/16/18 01/16/18 Unknown History NIFEdipine [Nifedipine ER] 90 mg PO HS 01/16/18 01/16/18 Unknown History Aspirin 325 mg PO QDAY #30 tablet 01/18/18 Unknown Rx AtorvaSTATin [Lipitor] 40 mg PO QHS #30 tab 01/18/18 Unknown Rx Amoxicillin [Amoxicillin TAB] 875 mg PO BID #20 tablet 01/01/19 Unknown Rx Chlorhexidine Mouthwash [Peridex] 15 ml MM BID #1 bottle 01/01/19 Unknown Rx Lidocaine Viscous 2% 5 ml MM Q3H PRN #120 udc 01/01/19 Unknown Rx Docusate Sodium [Colace] 100 mg PO BID PRN #14 capsule 10/18/20 Unknown Rx Promethazine [Phenergan] 25 mg PO Q6HR PRN #20 tab 10/18/20 Unknown Rx levoFLOXacin [Levaquin] 750 mg PO QDAY #7 tablet 10/18/20 Unknown Rx metroNIDAZOLE [Flagyl] 500 mg PO Q8HR #21 tablet 10/18/20 Unknown Rx traMADoL [Ultram 50 MG tab] 50 mg PO Q6HR PRN #20 tablet 10/18/20 Unknown Rx ED Physical Exam - General Limitations: No Limitations - Other Other exam information: General: No acute distress Head: Atraumatic Eyes: normal appearance ENT: Moist mucous membranes Neck: Normal appearance, no midline tenderness Chest: Clear to auscultation bilaterally CV: Regular rate and rhythm Abdomen: Soft, normal bowel sounds, right upper quadrant tenderness without lower abdominal tenderness on exam. Negative Mack sign, nondistended, no rebound or guarding Back: Normal inspection Extremity: Normal inspection, full range of motion Neuro: Alert O x 3, no facial asymmetry, speech clear, no gross motor sensory deficit Psych: Appropriate behavior Skin: No rash ED Course Vital Signs 10/18/20 10/18/20 10/18/20 16:11 17:35 19:15 Temperature 99.3 F 98.8 F 98.7 F Pulse Rate 95 H 83 81 Respiratory 18 18 14 Rate Blood Pressure 160/91 Blood Pressure 148/72 136/65 [Left] O2 Sat by Pulse 98 98 97 Oximetry - Reevaluation(s) Reevaluation #1: 10/18/20 20:46 pain and nausea improved 10/18/20 21:20 Patient tolerated p.o. meds without difficulty and reports feeling better - Consultations Consultation #1: 10/18/20 20:[address] Marco Renteria. Patient is nontoxic-appearing and cl inically stable she may be treated with 7 days of Levaquin and Flagyl and outpatient follow-up. ED Medical Decision Making - Lab Data Result diagrams: 10/18/20 18:39 10/18/20 18:39 Lab Results 10/18/20 10/18/20 10/18/20 Range/Units 18:39 18:39 Unknown WBC 14.4 H (4.5-11.0) K/mm3 RBC 4.56 (3.65-5.03) M/mm3 Hgb 12.9 (10.1-14.3) gm/dl Hct 37.9 (30.3-42.9) % MCV 83 (79-97) fl MCH 28 (28-32) pg MCHC 34 (30-34) % RDW 14.7 (13.2-15.2) % Plt Count 282 (140-440) K/mm3 Lymph % (Auto) 6.0 L (13.4-35.0) % Foster % (Auto) 4.1 (0.0-7.3) % Eos % (Auto) 0.0 (0.0-4.3) % Baso % (Auto) 0.5 (0.0-1.8) % Lymph # (Auto) 0.9 L (1.2-5.4) K/mm3 Foster # (Auto) 0.6 (0.0-0.8) K/mm3 Eos # (Auto) 0.0 (0.0-0.4) K/mm3 Baso # (Auto) 0.1 (0.0-0.1) K/mm3 Seg Neutrophils % 89.4 H (40.0-70.0) % Seg Neutrophils # 12.9 H (1.8-7.7) K/mm3 Sodium 133 L (137-145) mmol/L Potassium 3.8 (3.6-5.0) mmol/L Chloride 96.8 L (98-107) mmol/L Carbon Dioxide 27 (22-30) mmol/L Anion Gap 13 mmol/L BUN 11 (7-17) mg/dL Creatinine 0.5 L (0.6-1.2) mg/dL Estimated GFR > 60 ml/min BUN/Creatinine Ratio 22 % Glucose 129 H (65-100) mg/dL Calcium 9.6 (8.4-10.2) mg/dL Total Bilirubin 0.30 (0.1-1.2) mg/dL AST 15 (5-40) units/L ALT 8 (7-56) units/L Alkaline Phosphatase 63 (35-129) units/L Total Protein 6.4 (6.3-8.2) g/dL Albumin 4.2 (3.9-5) g/dL Albumin/Globulin Ratio 1.9 % Lipase 14 (13-60) units/L Urine Color Yellow (Yellow) Urine Turbidity Cloudy (Clear) Urine pH 7.0 (5.0-7.0) Ur Specific [place] 1.020 (1.003-1.030) Urine Protein <15 mg/dl (Negative) mg/dL Urine Glucose (UA) Neg (Negative) mg/dL Urine Ketones Neg (Negative) mg/dL Urine Blood Mod (Negative) Urine Nitrite Neg (Negative) Urine Bilirubin Neg (Negative) Urine Urobilinogen < 2.0 (<2.0) mg/dL Ur Leukocyte Esterase Sm (Negative) Urine WBC (Auto) 7.0 H (0.0-6.0) /HPF Urine RBC (Auto) 12.0 (0.0-6.0) /HPF U Epithel Cells (Auto) 2.0 (0-13.0) /HPF Urine Bacteria (Auto) 4+ (Negative) /HPF Urine Mucus Few /HPF - Radiology Data Radiology results: report reviewed CT abdomen pelvis w con INDICATION / CLINICAL INFORMATION: MAIN. TECHNIQUE: All CT scans at this location are performed using CT dose reduction for ALARA by means of automated exposure control. COMPARISON: None available. FINDINGS: No free fluid is seen in the abdomen. There is marked thickening of the cecum with pericolonic inflammation. The appendix appears to be unremarkable. The liver, spleen, kidneys, pancreas, adrenal glands and great vessels are normal. No enlarged mesenteric or retroperitoneal lymph nodes are identified. In the pelvis, no free fluid is seen. No enlarged lymph nodes are identified. The bladder is normal. A left hip prosthesis is present. Advanced degenerative changes seen in the right hip and in the lumbar spine. IMPRESSION: 1. Marked thickening of the cecum with pericolonic inflammation. This could represent an inflammatory process although tumor cannot be excluded. The appendix appears to be normal. 2. Advanced degenerative change in the right hip with a left hip prosthesis present - Medical Decision Making 70-year-old female presents to the hospital abdominal pain, increased bowel movements x3 today, and nausea vomiting x3 today. Pain minimal on examination. CT showed significant inflammation at the cecum without signs of appendicitis. Patient is nontoxic-appearing without signs of sepsis or septic shock. Symptoms improved with Toradol and Zofran. UA also has mild increase WBC count and bacteria. Case discussed with GI who recommends antibiotics if clinically stable and outpatient follow-up. Critical Care Time: No Critical care attestation.: If time is entered above; I have spent that time in minutes in the direct care of this critically ill patient, excluding procedure time. ED Disposition Clinical Impression: Inflammation of colonic mucosa, UTI (urinary tract infection) Disposition: DC- TO HOME OR SELFCARE Is pt being admited?: No Does the pt Need Aspirin: No Condition: Stable Instructions: Abdominal Pain (ED), Colitis, Urinary Tract Infection, Adult Additional Instructions: Take the medication as prescribed. It is very important you follow-up with a GI specialist for further evaluation as discussed. You will likely need a colonoscopy for reevaluation of your colon. If your symptoms get worse instead of better despite the prescribed treatment please return to the ER for reevaluation and possible admission. Symptoms include worsening vomiting, unable to keep down the medication, fever, worsening pain, blood in your stool, or fever. Please refer to discharge paperwork for other indications to return to the ER Prescriptions: Docusate Sodium [Colace] 100 mg PO BID PRN #14 capsule PRN Reason: Constipation metroNIDAZOLE [Flagyl] 500 mg PO Q8HR #21 tablet levoFLOXacin [Levaquin] 750 mg PO QDAY #7 tablet Promethazine [Phenergan] 25 mg PO Q6HR PRN #20 tab PRN Reason: Nausea traMADoL [Ultram 50 MG tab] 50 mg PO Q6HR PRN #20 tablet PRN Reason: Pain Referrals: VIOLETTA MONCADA JR, MD [Primary Care Provider] - 3-5 Days GERARDO RENTERIA MD [Staff Physician] - 7-10 days (GI specialist) Time of Disposition: 21:35
[2020-10-18 18:58] LABS: Basophils # (Auto) 0.1 K/mm3 (0.0-0.1); Basophils % (Auto) 0.5 % (0.0-1.8); Hematocrit 37.9 % (30.3-42.9); Hemoglobin 12.9 gm/dl (10.1-14.3); Lymphocytes # (Auto) 0.9 K/mm3 (1.2-5.4); Mean Corpuscular HGB Conc 34 % (30-34); Mean Corpuscular Volume 83 fl (79-97); Monocytes # (Auto) 0.6 K/mm3 (0.0-0.8); Monocytes % (Auto) 4.1 % (0.0-7.3); Platelet Count 282 K/mm3 (140-440); Red Blood Count 4.56 M/mm3 (3.65-5.03); Red Cell Distribution Width 14.7 % (13.2-15.2)
[2020-10-18 19:19] LABS: Alanine Aminotransferase 8 units/L (7-56); Albumin 4.2 g/dL (3.9-5); Blood Urea Nitrogen 11 mg/dL (7-17); Calcium 9.6 mg/dL (8.4-10.2); Hemolysis Index 5
[2020-10-18 19:20] LABS: BUN/Creatinine Ratio 22
[2020-10-18] MEDS ORDERED: SODIUM CHLORIDE 0.9% 1000 ML 1,000 ML IV ONE (19:44)
--- NOTE | 2020-10-18 20:25 | Cat Scan Report ---
CT abdomen pelvis w con INDICATION / CLINICAL INFORMATION: MAIN. TECHNIQUE: All CT scans at this location are performed using CT dose reduction for ALARA by means of automated e xposure control. COMPARISON: None available. FINDINGS: No free fluid is seen in the abdomen. There is marked thickening of the cecum with pericolonic inflam mation. The appendix appears to be unremarkable. The liver, spleen, kidneys, pancreas, adrenal glands and great vessels are normal. No enlarged mesenteric or retroperitoneal lymph nodes are identified. In the pelvis, no free fluid is seen. No enlarged lymph nodes are identified. The bladder is normal. A left hip prosthesis is present. Advanced degenerative changes seen in the right hip and in the lumb ar spine. IMPRESSION: 1. Marked thickening of the cecum with pericolonic inflammation. This could represent an inflammatory process although tumor cannot be excluded. The appendix appears to be normal. 2. Advanced degenerative change in the right hip with a left hip prosthesis present Signer Name: Alexander PARISI Signed: 10/18/2020 8:20 PM Workstation Name: [id number]
[2020-10-18] MEDS ORDERED: metroNIDAZOLE 500 MG TAB PO ONE (20:38)
[2020-10-18] MEDS ORDERED: levoFLOXacin 750 MG TAB PO ONE (20:38)
[2020-10-18 20:50] LABS: Bacteria,Urine 4+ /HPF (Negative); Bilirubin,Urine NEG (Negative); Blood,Urine MOD (Negative); Color,Urine Yellow (Yellow); Mucus,Urine FEW /HPF; Protein,Urine <15 mg/dL mg/dL (Negative); Urobilinogen,Urine < 2.0 mg/dL (<2.0)
[2020-10-18 22:45] VITALS: BP 121/71
== END 2020-10-18 22:40 | disposition home or self-care (01) ==
LOC: ED 15:48
DX: N39.0 Urinary tract infection, site not specified (principal); K58.9 Irritable bowel syndrome, unspecified; I10 Essential (primary) hypertension; Z98.890 Other specified postprocedural states; Z90.710 Acquired absence of both cervix and uterus; Z79.1 Long term (current) use of non-steroidal anti-inflammatories (NSAID); Z79.2 Long term (current) use of antibiotics; Z79.899 Other long term (current) drug therapy
CPT/HCPCS: 36415; 74177; 80053; 81001; 83690; 85025; 96361; 96374; 96375; 99284; J1885; J2405; J7030; Q9967